=== PATIENT | female | born 1990 | race Caucasian/White ===

== ENCOUNTER 2018-09-14 20:54 | Emergency (ER) | payer OTHER ==
[2018-09-14 20:58] VITALS: BP 96/69
--- NOTE | 2018-09-14 21:09 | EDPHY ---
H & P Time Seen by Provider: 09/14/18 21:02 HPI/ROS: CHIEF COMPLAINT: Laceration left posterior thigh HISTORY OF PRESENT ILLNESS: 28-year-old female with out-of-date tetanus via private vehicle complaining of accidental laceration left posterior thigh when she sat on broken glass shortly prior to arrival. No paresthesia. No sensory motor deficit. No foreign body sensation. PHYSICAL EXAM (Prior to examination, patient consented to physical exam, hands were washed and my usual and customary physical exam procedures followed) 1) GENERAL: Well-developed, well-nourished, alert and oriented. Appears to be in no acute distress. 2) HEAD: Normocephalic 3) HEENT: sclera anicteric 4) LUNGS: Breathing comfortably. 5) SKIN: Left posterior mid thigh 2 cm laceration. Superficial. Linear. No signs of infection. No erythema. No discoloration. 6) MUSCULOSKELETAL: Extension flexion at the knee is intact with no deficits. Smoking Status: Never smoked Constitutional: Initial Vital Signs Temperature (C) 36.7 C 09/14/18 20:56 Heart Rate 97 09/14/18 20:56 Respiratory Rate 18 09/14/18 20:56 Blood Pressure 96/69 L 09/14/18 20:56 O2 Sat (%) 98 09/14/18 20:56 O2 Delivery Mode Room Air Allergies/Adverse Reactions: Sulfa (Sulfonamide Antibiotics) Allergy (Verified 09/14/18 20:58) Home Medications: Medication Instructions Recorded NK [No Known Home Meds] 09/14/18 MDM/Departure - MDM Imaging Results: X-ray interpreted by myself shows no radiopaque foreign body Imaging: I viewed and interpreted images myself Procedures: Procedure: Laceration repair. I reviewed the patient's x-ray showing no radiopaque foreign body prior to wound closure. I explained the indications, risks and benefits for both laceration repair and anesthetic administration. Verbal consent was obtained from the patient. The laceration on the left posterior thigh was anesthetized using 0.5% bupivicaine with epinephrine. After anesthetic administered the patient was observed for a period of time and had no apparent adverse effects. The wound was cleaned, prepped, draped in normal sterile fashion and explored to its base. No foreign body seen, no foreign bodies palpated. There were no deep structures involved. The wound was repaired with 3 simple interrupted 4 0 Prolene sutures. The wound repair was simple. The procedure was performed by myself. Patient has been informed that scarring will occur, although efforts have been made to minimize this. ED Course/Re-evaluation: Tetanus updated. Usual and customary wound precautions instructions provided. I saw this patient independently based on established practice protocols. Care of patient under supervision of secondary supervising physician Dr Joe Carney - Depart Disposition: Home, Routine, Self-Care Clinical Impression: Laceration of left leg Qualifiers: Encounter type: initial encounter Qualified Code(s): S81.812A - Laceration without foreign body, left lower leg, initial encounter Condition: Good Instructions: Care For Your Stitches (ED), Laceration (ED) Additional Instructions: Return to the ER if you develop redness, swelling, discharge, warmth to the wound, red streaks going up your leg, or any other symptoms that concern you. Referrals: Return, to the ER in 14 days for suture removal [Other] - As per Instructions
[2018-09-14] MEDS ORDERED: DIPH,PERTUSS(ACELL),TET PED/PF 0.5 ML VIAL IM ONE (21:44)
[2018-09-14] MEDS ORDERED: TDAP ADULT 0.5 ML INJ (BOOSTRIX) IM ONE (21:46)
== END 2018-09-14 21:57 | disposition home or self-care (01) ==
PROC: 0HQJXZZ Repair Left Upper Leg Skin, External Approach (ICD-10-PCS; principal; 2018-09-14)
DX: S71.112A Laceration without foreign body, left thigh, initial encounter (principal); W25.XXXA Contact with sharp glass, initial encounter